=== PATIENT | male | born 1995 | race Caucasian/White ===

== ENCOUNTER 2024-11-09 18:08 | Emergency (ER) | payer OTHER ==
[~2024-11-09] VITALS: Ht 182.9 cm; Wt 164.7 kg
[2024-11-09 18:53] LABS: HEMOGLOBIN 15.9 g/dL (12.0-18.0)
[2024-11-09 18:56] LABS: BASOPHILS 0.9 % (0-2); EOSINOPHILS 6.8 % (0-6); HEMATOCRIT 46.4 % (35.0-50.0); LYMPHOCYTES 29.4 % (24-44); MCHC 34.2 g/dl (30-36); MCV 84.8 fl (81-99); MONOCYTES 7.4 % (0-12); NEUTROPHILS 55.5 % (39-80); PLATELET COUNT 204 K/uL (140-440); RBC 5.47 M/ul (4.3-5.7); RDW 14.1 (10.5-15.0)
[2024-11-09 19:10] LABS: ALBUMIN 4.1 g/dL (3.4-5.0); ANION GAP 11.8 (7-21); BILIRUBIN, TOTAL 0.4 ng/dL (0.2-1.0); BUN/CREATININE RATIO 11.95 (6.0-28.6); CALCIUM 9.7 mg/dL (8.5-10.1); CREATININE, SERUM 0.92 mg/dL (0.70-1.30); POTASSIUM 3.8 mmol/L (3.5-5.1); PROTEIN, TOTAL 8.2 g/dL (6.4-8.2)
[2024-11-09] MEDS ORDERED: PANTOPRAZOLE SODIUM 40 MG TABEC PO ONE (19:15)
[2024-11-09] MEDS ORDERED: ALBUTEROL SULFATE 0.083% 3 ML VIAL INH ONE (19:15)
[2024-11-09] MEDS ORDERED: LACTATED RINGER'S 1,000 ML IV ONE (19:15)
[2024-11-09 20:31] VITALS: BP 123/64
== END 2024-11-09 20:39 | disposition home or self-care (01) ==
LOC: ED 18:08
PROVIDERS: Emergency Medicine
DX: K21.9 Gastro-esophageal reflux disease without esophagitis (principal); J45.909 Unspecified asthma, uncomplicated; R74.8 Abnormal levels of other serum enzymes
CPT/HCPCS: 36415; 71045; 80053; 83735; 84484; 85025; 85379; 93005; 93010; 94640; 99285; A9270; J7121